=== PATIENT | male | born 1930 | race Caucasian/White ===

== ENCOUNTER → 2018-06-24 | Outpatient (CLI) | payer MEDICARE, BC ==
[2018-02-18 08:21] VITALS: BP 135/52
[~2018-06-24] MED LIST: ALLO100T PO; AMLO10TA8 PO; ASCO500T3 PO; ASPI-630 PO; ASPI325T8 PO; ASPI81TA50 PO; ATOR20TA58 PO; AZIT250T6 PO; Areds; CHOL10003 PO; ENOX40DI SQ; FERR325T14 PO; FURO-68 PO; FURO40TA4 PO; GLIM1TAB2 PO; GLIM2TAB2 PO; GLIM4TAB2 PO; INSU100I13 SQ; IOHEXOL 180 MG/ML 10 ML VIAL. ONE; IPRA3AMP29 NEB; LOSA-73 PO; LOSA25TA54 PO; ONDA4TAB7 PO; PANT20TA2 PO; PANT40TA3 PO; SITA50TA PO; WARF2TAB96 PO; [UNRECOGNIZED DRUG - MIXTURE]; ceftriaxone IVP; methylPREDNISolone ACETATE 40 MG/ML VIAL. ONE; methylPREDNISolone ACETATE 80 MG/ML VIAL. ONE; tylenol pm
--- NOTE | 2018-06-25 04:44 | PAIN ---
DATE OF SERVICE: 06/24/2018 INITIAL CONSULTATION FOR PAIN CLINIC CHIEF COMPLAINT: Low back and bilateral lower extremity pain, right greater than left. HISTORY OF PRESENT ILLNESS: This is an 87-year-old male with pain in the low back, right hip and thigh pain with pain radiating into the anterior thigh, lateral thigh, medial thigh and into the knee and anterior thigh. The patient describes the pain as constant, aching, dull, also shooting and tight and tingling at times in the leg and low back, worse with standing, walking, changing positions, better with sitting or lying down. The patient does walk with a cane and sometimes it does affect his ability to walk, does not affect him waking at night and does not affect his bowel or bladder control. He sleeps well and feels much better with sitting or lying down. The patient did have a CT scan of the lumbar spine showing advanced multilevel lumbar spondylosis with moderate to severe central canal stenosis at L2-L3 and discogenic changes and severe hypertrophic changes of the posterior elements, L3-L4 and L4-L5 as well. The patient reports a disability rate from 0-10, 10 being the worst as 0 in all categories as he is able to do family home responsibilities, recreation, social activity, occupation, sexual behavior, self-care and life support activities. He does not let it slow him down. He is still putting up with the pain while he is doing these activities. The patient reports she has had injections in the past for his back that did help significantly. He has not had any formal physical therapy recently. He is doing some stretching and strengthening on his own, but mostly just stretching in the mornings when it is more painful. The patient reports some easy fatigability, but no falls recently. He did fall over the winter outdoors, but attributes this to may be some slippery surfaces on the ground. PAST MEDICAL HISTORY: Significant for type 2 diabetes, hearing loss with hearing aids shortness of breath, cigarette smoking quit 35 years ago and previously one pack a day for 20 years prior to that, history of hypertension and dizziness. PREVIOUS SURGERIES: Include cataract extractions in 2017 and cellulitis of the right leg. CURRENT MEDICATIONS: Include allopurinol, glimepiride, pantoprazole, Lasix, amlodipine, DuoNeb, Januvia and atorvastatin. ALLERGIES: The patient has no known drug allergies. FAMILY HISTORY: Significant for no major medical problems or conditions that he is aware of. SOCIAL HISTORY: The patient quit smoking many years ago. He does not drink alcohol, he does not use any illegal, illicit or recreational drugs. He is single, lives locally on his own in [place], [place] and he is retired. REVIEW OF SYSTEMS: The patient's review of systems is positive for those items mentioned in the history of present illness. All systems reviewed otherwise is negative. It is complete, full and well documented on the patient's chart. PHYSICAL EXAMINATION: VITAL SIGNS: The patient's blood pressure is 155/47, pulse is 55, respirations 18, temperature is 97.9 degree Fahrenheit, height is 5 feet 9 inches and weight is 181 pounds. GENERAL: The patient is awake, alert, oriented, appropriate, very pleasant demeanor. HEENT: Head shows normocephalic and atraumatic. Extraocular movements are intact and symmetrical. Oral cavity: Mucous membranes are moist and pink. Dentition is intact. NECK: Shows anterior throat is supple without palpable lymphadenopathy noted. Swallow reflex is symmetrical. CHEST: Shows normal with inspection. Breath sounds are clear to auscultation bilaterally. HEART: Shows S1 and S2 clear. No murmurs are auscultated. ABDOMEN: Soft, nontender and nondistended. No palpable organomegaly is noted. No rebound or guarding demonstrated. BACK: Shows spine grossly in the midline. Normal appearing thoracic kyphosis and some minor flattening of the lumbar lordotic curvature. Lumbar paraspinous muscle shows symmetrical on inspection. On palpation shows some moderate tenderness diffusely bilaterally, but only diffusely without radiation. The patient has good rotational motion of the lumbar spine, both laterally greater than 10 degrees, right and left as well as extension greater than 10 degrees, forward flexion 45 degrees without difficulty or pain reported. EXTREMITIES: The patient's lower extremities show deep tendon reflexes at 1+ in the patellar and tendo calcaneus tendons are equal. Motor exam is strong with 5/5 dorsiflexion, extension, quadriceps and hamstring flexion and symmetrical bilaterally. Peripheral pulses are 1+ posterior tibial. No peripheral edema is noted. Straight leg raise noted to be positive on the right about 40 degrees with decrease with knee flexion. Left side is negative. Gaenslen's and Ant's maneuvers are negative bilaterally. The patient is able to stand, has some slight difficulty getting from a seated to a standing position, but is able to do this without assistance, does use the arms of the chair fairly significantly; however. Walking, the patient has a slight shuffling gait, but does not appear to favor the right or left lower extremity significantly for a short distance walking in the office today. SKIN: The patient's skin shows warm and dry and good turgor. No edema. No sores, rashes or bruising throughout. IMPRESSION: 1. This is an 87-year-old male with approximately 6 to 7 month history of increasing pain, low back and right lower extremity in radicular fashion. 2. CT scan of the lumbar spine as noted. 3. Hypertension. 4. Diabetes. 5. Hearing loss. PLAN: Options were discussed with the patient including conservative medical management, physical therapy and interventional techniques. He would like to pursue interventional techniques. We discussed a lumbar epidural steroid injection using description as well as anatomical models to describe the procedure. Risks were then discussed including, but not limited to bleeding, infection, possibility of epidural hematoma, subsequent neurological compromise, dural puncture, headaches, spinal cord and/or nerve damage, side effects of steroid medication and poor results regarding pain control. The patient understands and wishes to proceed. The patient will return to the clinic in approximately 2 weeks for followup. She was counseled as to return appointment, activity level and side effects to be aware of. DIAGNOSIS: Lumbar radiculopathy with lumbar degenerative disk disease with lumbar spinal stenosis and lumbar spondylosis. PROCEDURE: Lumbar epidural steroid injection, translaminar approach at L4-L5 level using C-arm fluoroscopic guidance under sterile prep and drape using local anesthetic. MEDICATION INJECTED: A total of 120 mg Depo-Medrol plus 10 mL of preservative-free normal saline and 2 mL of Isovue for contrast. CONDITION AT DISCHARGE: Stable. The patient tolerated the procedure well and had no complications. ABBY VARGAS MD DR: JACLYN/nicci JOB#: [id number] / [id number]
== END | disposition home or self-care (01) ==
LOC: PNCL 08:58
PROVIDERS: ATTEND Anesthesiology
DX: M51.16 Intervertebral disc disorders with radiculopathy, lumbar region (principal); M48.061 Spinal stenosis, lumbar region without neurogenic claudication; M47.26 Other spondylosis with radiculopathy, lumbar region; I10 Essential (primary) hypertension; E11.9 Type 2 diabetes mellitus without complications; H91.90 Unspecified hearing loss, unspecified ear; Z87.891 Personal history of nicotine dependence; Z98.42 Cataract extraction status, left eye; Z98.41 Cataract extraction status, right eye; Z96.1 Presence of intraocular lens; Z98.890 Other specified postprocedural states; Z79.899 Other long term (current) drug therapy; Z79.84 Long term (current) use of oral hypoglycemic drugs
CPT/HCPCS: 62323; J1030; J1040; Q9965

== ENCOUNTER → 2018-07-08 | Outpatient (CLI) | payer MEDICARE, BC ==
[2018-02-18 08:21] VITALS: BP 135/52
--- NOTE | 2018-07-09 00:55 | PAIN ---
DATE OF SERVICE: 07/08/2018 DIAGNOSIS: Lumbar radiculopathy with lumbar degenerative disk disease, lumbar spinal stenosis with lumbar spondylosis. HISTORY OF PRESENT ILLNESS: The patient is an 87-year-old male who returns for follow up status post lumbar epidural steroid injection x 1. The patient reports about 40% improvement in low back and right lower extremity pain, still some pain in that region, but doing much better. The patient reports no new motor or sensory deficits. No new bowel or bladder incontinence or other complaints. He has been increasing his activity with greater ease and comfortable walking greater distances, getting in and out of a car with greater ease and sleeping better at night. The patient reports still it was not waking him from sleep, much worse with standing and walking and sometimes with prolonged sitting. The patient rates his pain as 7 on a scale of 10 at its worst, 5 on average, 3 at its least and is 5 today. The patient reports it is aching and stabbing only on and off and intensity now across the back and into the right leg, mostly in the lateral thigh and anterior medial thigh on the right with standing or walking. The patient reports no new motor or sensory deficits. No new bowel or bladder incontinence. No other complaints. PHYSICAL EXAMINATION: VITAL SIGNS: The patient's blood pressure is 154/69, pulse 56, respirations 16, temperature is 97.4 degrees Fahrenheit, height is 5 feet 9 inches, weighs 174 pounds. GENERAL: The patient is awake, alert, oriented and appropriate, very pleasant demeanor. HEENT: Normocephalic, atraumatic. Extraocular movements are intact and symmetrical. Oral cavity: Mucous membranes are moist and pink. Dentition is intact. NECK: Anterior throat supple, without lymphadenopathy noted. Swallow reflex is symmetrical. CHEST: Shows normal on inspection. Breath sounds are clear to auscultation bilaterally. HEART: Shows S1, S2 clear. No murmurs auscultated. ABDOMEN: Soft, nontender, nondistended. No palpable organomegaly is noted. No rebound or guarding demonstrated. BACK: Shows spine grossly in midline. Normal-appearing thoracic kyphosis and normal lordotic curvature. Lumbar paraspinous muscles shows symmetrical on inspection, on palpation he has some moderate tenderness diffusely, but only diffusely without radiation. The patient has good rotational motion of the lumbar spine, both laterally as well as extension and flexion without difficulty. EXTREMITIES: The patient's lower extremities show deep tendon reflexes at 1+ in the patella and tendo calcaneus tendons. Motor exam is normal at 5/5 dorsiflexion and extension, quadriceps and hamstrings flexion bilaterally. Options were discussed with the patient. The patent's old chart was reviewed as was his current medication regimen updated. Current review of systems was updated today as well. We will proceed with the second in a series of lumbar epidural steroid injection under stable fluoroscopic guidance. Risks were again discussed including, but not limited to bleeding, infection, possibility of epidural hematoma and subsequent neurologic compromise, dural puncture, headache, spinal cord and/or nerve damage, side effects of steroid medication and poor results regarding pain control. The patient understands and wished to proceed. The patient will return to the clinic in approximately 2 weeks for followup. He was counseled as to return appointment, activity level and side effects to be aware of. DIAGNOSIS: Lumbar radiculopathy with lumbar degenerative disk disease, lumbar spinal stenosis and lumbar spondylosis. PROCEDURE: Lumbar epidural steroid injection, translaminar approach, L4-L5 level using C-arm fluoroscopic guidance under sterile prep and drape using local anesthetic. MEDICATION INJECTED: A total of 120 mg Depo-Medrol plus 10 mL of preservative-free normal saline and 2 mL of contrast. CONDITION ON DISCHARGE: Stable. The patient tolerated the procedure well, had no complications. ABBY VARGAS MD DR: JACLYN/nicci JOB#: [id number] / [id number]
== END | disposition home or self-care (01) ==
LOC: PNCL 10:07
PROVIDERS: ATTEND Anesthesiology
DX: M51.16 Intervertebral disc disorders with radiculopathy, lumbar region (principal); M48.061 Spinal stenosis, lumbar region without neurogenic claudication; M47.26 Other spondylosis with radiculopathy, lumbar region
CPT/HCPCS: 62323; J1030; J1040; Q9965

== ENCOUNTER → 2018-08-26 | Outpatient (CLI) | payer MEDICARE, BC ==
[2018-02-18 08:21] VITALS: BP 135/52
[~2018-08-26] MED LIST changes: -methylPREDNISolone ACETATE 40 MG/ML VIAL. ONE
--- NOTE | 2018-08-27 07:35 | PAIN ---
DATE OF SERVICE: 08/26/2018 PROGRESS NOTE FOR PAIN CLINIC DIAGNOSES: Lumbar radiculopathy with lumbar degenerative disk disease, lumbar spinal stenosis and lumbar spondylosis. HISTORY OF PRESENT ILLNESS: The patient is an 87-year-old male who returns for followup status post lumbar epidural steroid injection x 2, most recently on 07/08/2018, the patient did very well with about 40% improvement after last injection, reports the pain is returning now again in the right lower extremity as it was previously. The patient reports no new motor or sensory deficits, no new bowel or bladder incontinence, but significant pain in the low back and the right lower extremity, worse with walking and standing; better with sitting and lying down, has not awaken him from sleep at night. He was initially increasing his distance walking, doing greater activities at home, traveling with greater ease, but now when he rides in the car for about 20 minutes, the pain does begin to get more painful in the low back, right leg, lateral thigh, anterior thigh, medial thigh and into the ankle on the medial aspect of the right side. The patient reports it is a 9 on a scale of 10 at its least, 10 on average, 10 at its worst, is aching, sharp pain, stabbing and becoming more constant. The patient reports no new motor or sensory deficits, no new bowel or bladder incontinence. PHYSICAL EXAMINATION: VITAL SIGNS: The patient's blood pressure is 161/78, respirations are 16, pulse is 89, temperature is 97.6 degrees Fahrenheit, weight is 174 pounds. GENERAL: The patient is awake, alert, oriented, appropriate, very pleasant demeanor. HEENT: Shows normocephalic, atraumatic. Extraocular movements are intact and symmetrical. The patient wears eye glasses. Oral cavity: Mucous membranes moist and pink. Dentition is intact. NECK: Shows anterior throat supple without palpable lymphadenopathy noted. Swallow reflex is symmetrical. CHEST: Shows normal on inspection. Breath sounds are clear to auscultation bilaterally. HEART: Shows S1, S2 clear. No murmurs auscultated. ABDOMEN: Soft, nontender, nondistended. No palpable organomegaly is noted. No rebound or guarding demonstrated. BACK: Shows spine grossly in the midline. Normal appearing thoracic kyphosis and minor flattening of lumbar lordotic curvature. Lumbar paraspinous muscle shows symmetrical on inspection. On palpation shows some moderate tenderness diffusely bilaterally, but only diffusely without radiation. The patient has good rotational motion of lumbar spine, both laterally as well as extension and flexion. EXTREMITIES: Lower extremities show deep tendon reflexes 1+ in the patellar and tendo-calcaneus tendons. Motor exam remains strong with 5/5 dorsiflexion, extension, quadriceps and hamstring flexion and symmetrical. Peripheral pulses are 1+ in posterior tibial. No peripheral edema is noted bilaterally. Options were discussed with the patient. The patient's old chart was reviewed as well as his current medication regimen updated. Current review of systems updated today as well. We will proceed with a third in the series of lumbar epidural steroid injection today with fluoroscopic guidance. Risks were again discussed including, but not limited to bleeding, infection, possibility of epidural hematoma, subsequent neurologic compromise, dural puncture, headache, spinal cord and/or nerve damage, side effects of steroid medication and poor results regarding pain control. The patient understands and wished to proceed. The patient will return to the clinic in approximately 2 weeks for followup, was counseled on return appointment, activity level and side effects to be aware of. DIAGNOSES: Lumbar radiculopathy with lumbar spinal stenosis, lumbar degenerative disk disease and lumbar spondylosis. PROCEDURE: Lumbar epidural steroid injection, translaminar approach at L3-L4 level using C-arm fluoroscopic guidance under sterile prep and drape using local anesthetic. MEDICATION INJECTED: A total of 80 mg of Depo-Medrol plus 10 mL of preservative-free normal saline and 2 mL of contrast. CONDITION AT DISCHARGE: Stable. The patient tolerated the procedure well, had no complications. ABBY VARGAS MD DR: JACLYN/nicci JOB#: [id number] / [id number]
== END ==
LOC: PNCL 10:28
PROVIDERS: ATTEND Anesthesiology
DX: M51.16 Intervertebral disc disorders with radiculopathy, lumbar region (principal); M48.061 Spinal stenosis, lumbar region without neurogenic claudication; M47.816 Spondylosis without myelopathy or radiculopathy, lumbar region; M54.5 Low back pain
CPT/HCPCS: 62323; J1040; Q9965